=== PATIENT | male | born 1980 | race Caucasian/White ===

== ENCOUNTER 2016-08-31 18:18 | Observation (INO) ==
--- NOTE | 2016-08-31 19:24 | Emergency Department Note ---
Disposition Clinical Impression: Stable angina Disposition: Admitted As Inpatient Condition: Good Time of Disposition: 20:43 Chest Pain HPI - General Chief Complaint: ED Chest Pain Stated Complaint: chest pain Time Seen by Provider: 08/31/16 19:17 Source: patient Mode of arrival: ambulatory Limitations: no limitations Vital Signs Reviewed: Yes Nursing Notes Reviewed: Yes - History of Present Illness HPI Narrative: Patient presents to the ED the chief complaint of chest pain. Patient has a history of coronary artery disease requiring stents with the most recent one year ago. He is on aspirin and Plavix and followed by Dr. Hinojosa. He states that the last 3 days he has been having intermittent left-sided chest pain. However, today it has increased in intensity and has become more constant. Describes it as a very sharp stabbing pressure in his left chest that radiates into his neck, shoulder, and throat. Nothing seems to make it better or worse. It is nonexertional. However, it is his previous anginal equivalent. Associated with intermittent diaphoresis and nausea. Denies any recent illnesses. Denies fever, chills, abdominal pain, vomiting, diarrhea, pain or swelling in his legs. No history DVT, PE, or malignancy. He does report that he has been taking his aspirin and Plavix daily as instructed, but has not followed up with Dr. Hinojosa and almost a year. Has a history of hypertension and continues to smoke, but has lost almost 50 pounds and has significantly cut back on his smoking. He reports that he took a nitroglycerin last night which resolved his pain, but it is back now and has not responded to nitroglycerin. Severity scale (1-10): 8 - Related Data Home Medications Medication Instructions Recorded Confirmed Amlodipine [Norvasc] 5 mg PO DAILY 09/04/15 08/31/16 Atorvastatin [Lipitor] 40 mg PO HS 08/31/16 08/31/16 Diclofenac Sodium 1 appl TP TID PRN 08/31/16 08/31/16 Previous Rx's Medication Instructions Recorded Aspirin 81 mg PO DAILY #30 tab.chew 09/06/15 Clopidogrel [Plavix] 75 mg PO DAILY #30 tablet 09/06/15 Lisinopril [Zestril] 5 mg PO DAILY #30 tablet 09/06/15 Metoprolol [Lopressor] 25 mg PO BID #30 tablet 04/17/16 Nitroglycerin 0.4 mg SL Q5MIN PRN #60 tab.subl 09/06/15 Allergies Allergy/AdvReac Type Severity Reaction Status Date / Time phenobarbital AdvReac Difficulty Verified 06/07/16 01:13 Breathing All systems ED: reviewed and negative except as stated. Constitutional: Reports: other (Intermittent diaphoresis) Cardiovascular: Reports: chest pain. Denies: dyspnea on exertion, orthopnea, syncope Respiratory: Reports: dyspnea Gastrointestinal: Reports: nausea Neurological: Reports: headache (After nitroglycerin) Chest Pain PMH - Past Medical History Medical history: Reports: hyperlipidemia, hypertension, kidney stones, myocardial infarction, other Surgical history: Reports: no surgical history Psychiatric history: Reports: anxiety - Social History Smoking Status: Current every day smoker Alcohol use: Reports: rarely Drug use: Reports: none, other Physical Exam - General Limitations: no limitations General appearance: alert, in no apparent distress, obese - Head Head exam: atraumatic, normocephalic, normal inspection - Eye Eye exam: Present: normal appearance - ENT ENT exam: normal exam, normal oropharynx, mucous membranes moist - Chest Chest inspection: Present: normal inspection, symmetric chest wall rise, tenderness (Vision, does have some tenderness to his bilateral chest wall. However, this is not reproducible of the patient's symptoms and is different from what he is experiencing. He does report that he does work as a operations and maintenance supervisor at the [employer] and is frequently lifting very heavy objects. However the pain he is having is his anginal equiv) - Respiratory Respiratory exam: Present: normal lung sounds bilaterally - Cardiovascular Cardiovascular exam: Present: regular rate, normal rhythm, normal heart sounds - Abdominal Exam Abdominal exam: Present: soft, Non-Tender. Absent: tenderness, distention, guarding, rebound, rigidity - Extremities Exam Extremities exam: Present: normal inspection, full ROM. Absent: tenderness, pedal edema - Neurological Exam Neurological exam: Present: alert, oriented X3 - Psychiatric Psychiatric exam: Present: normal affect, normal mood - Skin Skin exam: Present: warm, dry, intact, normal color. Absent: diaphoresis Course Course Narrative: 28-year-old male presenting with left-sided chest pain the last 3 days, worse today. It is his anginal equivalent to a "small heart attack" one year ago requiring a stent. Initially responsive to nitroglycerin. However, as been constant today. Chest pain workup initiated. Likely admission. - Reevaluation(s) Reevaluation #1: Initial troponin negative, d-dimer negative. Patient's pain is significantly improved. However, due to this being his anginal equivalent, I do think this patient will need to be admitted for further workup and monitoring. Heart score as documented. Paged hospitalist for admission. Vital Signs Temperature 97.9 F 08/31/16 18:37 Pulse Rate 88 08/31/16 18:37 Respiratory Rate 17 08/31/16 18:37 Blood Pressure 134/81 08/31/16 18:37 O2 Sat by Pulse Oximetry 97 08/31/16 18:37 Temperature 97.9 F 08/31/16 18:37 Pulse Rate 69 08/31/16 20:54 Respiratory Rate 16 08/31/16 20:54 Blood Pressure 129/79 08/31/16 20:54 O2 Sat by Pulse Oximetry 99 08/31/16 20:54 Oxygen Delivery Oxygen Delivery Nasal Cannula Chest Pain - Medical Records Medical records reviewed: Yes I reviewed the patient's medical records. - Lab Data Lab results reviewed: Yes I reviewed the patient's lab results. Result diagrams: 08/31/16 19:39 08/31/16 19:39 Lab Results 08/31/16 08/31/16 08/31/16 Range/Units 19:39 19:39 19:39 WBC 8.8 (4.3-11.1) K/mcL RBC 4.90 (4.19-5.50) M/mcL Hgb 14.8 (12.9-16.9) g/dL Hct 44.1 (37.5-50.1) % MCV 90.0 (83.0-100.0) fL MCH 30.2 (28.0-33.3) pg MCHC 33.6 (31.6-35.5) g/dL RDW 12.9 (11.5-14.5) % Plt Count 247 (140-400) K/mcL MPV 9.6 (9.4-12.4) fL Immature Gran % 0.3 (0-4) % Seg Neutrophils % 55.4 % Lymphocytes % 36.2 % Monocytes % 6.1 % Eosinophils % 1.7 % Basophils % 0.3 % Neutrophils # 4.9 (1.6-8.9) K/mcL Lymphocytes # 3.2 (0.6-4.6) K/mcL Monocytes # 0.5 (0.0-1.3) K/mcL Eosinophils # 0.2 (0.0-0.6) K/mcL Basophils # 0.0 (0.0-0.2) K/mcL PT 11.3 (9.4-12.1) Seconds INR 1.0 APTT 30.1 (26.0-36.0) Seconds D-Dimer < 215 (0-500) ng/mLFEU Sodium 140 (136-145) mEq/L Potassium 3.3 L (3.5-4.5) mEq/L Chloride 106 (98-109) mEq/L Carbon Dioxide 28 (19-29) mEq/L BUN 10 (8-26) mg/dL Creatinine 0.99 (0.72-1.25) mg/dL Est GFR ( Amer) > 60 (> 60) Est GFR (Non-Af Amer) > 60 (> 60) BUN/Creatinine Ratio 10 (6-26) Glucose 153 H (70-99) mg/dL Calculated Osmolality 292 (280-300) Calcium 9.0 (8.6-10.8) mg/dL Troponin I (0-0.03) ng/mL Lipase 22 (8-78) Units/L 08/31/16 Range/Units 19:39 WBC (4.3-11.1) K/mcL RBC (4.19-5.50) M/mcL Hgb (12.9-16.9) g/dL Hct (37.5-50.1) % MCV (83.0-100.0) fL MCH (28.0-33.3) pg MCHC (31.6-35.5) g/dL RDW (11.5-14.5) % Plt Count (140-400) K/mcL MPV (9.4-12.4) fL Immature Gran % (0-4) % Seg Neutrophils % % Lymphocytes % % Monocytes % % Eosinophils % % Basophils % % Neutrophils # (1.6-8.9) K/mcL Lymphocytes # (0.6-4.6) K/mcL Monocytes # (0.0-1.3) K/mcL Eosinophils # (0.0-0.6) K/mcL Basophils # (0.0-0.2) K/mcL PT (9.4-12.1) Seconds INR APTT (26.0-36.0) Seconds D-Dimer (0-500) ng/mLFEU Sodium (136-145) mEq/L Potassium (3.5-4.5) mEq/L Chloride (98-109) mEq/L Carbon Dioxide (19-29) mEq/L BUN (8-26) mg/dL Creatinine (0.72-1.25) mg/dL Est GFR ( Amer) (> 60) Est GFR (Non-Af Amer) (> 60) BUN/Creatinine Ratio (6-26) Glucose (70-99) mg/dL Calculated Osmolality (280-300) Calcium (8.6-10.8) mg/dL Troponin I 0.00 (0-0.03) ng/mL Lipase (8-78) Units/L - Radiology Data Radiology results reviewed: Yes I reviewed the patient's radiology results. - EKG Data EKG attestation: Yes I reviewed and interpreted this EKG. EKG results narrative: Sinus rhythm, rate 84, when necessary 162, QRS 91, QTc 387, normal axis, nonspecific T-wave changes Heart Score - Score History: Highly Suspicious (previous anginal equiv) EKG: Non Specific repolarisation Disturbance Age: Less than 45 Risk Factors: Equal/Greater than 3 risk factor or history of atherosclerotic disease Troponin: Less than normal limit HEART Score Total: 5 S.B.A.R. - S.B.A.R. Situation: Demographics, MOA Background: Presenting Complaint, Relevant PMH, Meds, & Allergies Assessment: Vital Signs, Course and respsone to treatment, Exam Concerns, Patient/Family Expectation, Pertinant Lab Results, Outstanding Labs Recommendation: Recommendation based on pending studies, treatments, or consults S.B.A.R. Report Given to: Dr. Pérez [email or web address] Repor Time: 20:43 (Requested Tele) Attestation Statement - Attestation Attestation: I, Gonsalo Snow MD, personally performed a history and physical exam of the patient and discussed their management with the resident. I reviewed the resident's note and agree with the documented findings, medical decision making , and plan of care. 36-year-old male with history of coronary artery disease and a coronary artery stent placed one year ago presents to the emergency department with a complaint of some left-sided chest pain off and on for the past 3 days. Pain is become worse today. The pain radiates towards the left base of the neck into the left arm. Some mild shortness of breath associated with the pain. Some mild diaphoresis. Some nausea but no vomiting. He did take some nitroglycerin at home with partial relief. Patient states this pain feels similar to when he had a stent placed last year. On examination patient is a well-developed obese male in no acute distress. He is alert and oriented 3. There is no cyanosis or diaphoresis. Chest is nontender to palpation. Breath sounds are clear and equal bilaterally. Heart regular rate and rhythm. Abdomen soft and nontender with normal bowel sounds. No acute changes on EKG. Chest x-ray negative. Labs reviewed and unremarkable. Troponin negative. The hospitalist, Dr. Pérez, was consulted and accepted admission of the patient.
[2016-08-31] MEDS ORDERED: 0.9 % Sodium Chloride 500 ML IVC ONE (19:36)
[2016-08-31] MEDS ORDERED: Aspirin 81 MG TAB.CHEW PO ONE (19:36)
[2016-08-31] MEDS ORDERED: Nitroglycerin 0.4 MG TAB.SUBL SL ONE (19:36)
[2016-08-31 19:48] LABS: Basophils % 0.3 %; Eosinophils # 0.2 K/mcL (0.0-0.6); Eosinophils % 1.7 %; Hematocrit 44.1 % (37.5-50.1); Hemoglobin 14.8 g/dL (12.9-16.9); Immature Granulocytes % 0.3 % (0-4); Lymphocytes # 3.2 K/mcL (0.6-4.6); Lymphocytes % 36.2 %; Mean Corpuscular HGB Conc 33.6 g/dL (31.6-35.5); Mean Corpuscular Hemoglobin 30.2 pg (28.0-33.3); Mean Platelet Volume 9.6 fL (9.4-12.4); Monocytes # 0.5 K/mcL (0.0-1.3); Monocytes % 6.1 %; Neutrophils # 4.9 K/mcL (1.6-8.9); Platelet Count 247 K/mcL (140-400); Red Cell Distribution Width 12.9 % (11.5-14.5); Segmented Neutrophils % 55.4 %
[2016-08-31 19:53] LABS: Prothrombin Time 11.3 Seconds (9.4-12.1)
[2016-08-31 19:56] LABS: Activated Partial Thrombo Time 30.1 Seconds (26.0-36.0)
[2016-08-31 20:05] LABS: BUN/Creatinine Ratio 10 (6-26); Blood Urea Nitrogen 10 mg/dL (8-26); Carbon Dioxide 28 mEq/L (19-29); Chloride 106 mEq/L (98-109); Glucose 153 mg/dL (70-99); Lipase 22 Units/L (8-78); Osmolality,Calculated 292 (280-300); Potassium 3.3 mEq/L (3.5-4.5); Sodium 140 mEq/L (136-145); eGFR For African Americans > 60 (> 60); eGFR For Non-African Americans > 60 (> 60)
[2016-08-31 20:21] LABS: D-Dimer < 215 ng/mLFEU (0-500)
[2016-08-31] MEDS ORDERED: Nitroglycerin 0.4 MG TAB.SUBL SL PRN (23:40)
[2016-08-31] MEDS ORDERED: Naloxone 0.4 MG/ML INJ IVP PRN (23:42)
[2016-08-31] MEDS ORDERED: Acetaminophen 325 MG TABLET PO PRN (23:42)
[2016-08-31] MEDS ORDERED: *HR* Metoprolol 5 MG/5 ML VIAL IVP PRN (23:42)
[2016-08-31] MEDS ORDERED: *HR* Promethazine 25 MG/ML VIAL IVP PRN (23:42)
[2016-08-31] MEDS ORDERED: Pantoprazole 40 MG VIAL IVP STA (23:42)
[2016-08-31] MEDS ORDERED: Nicotine 21 MG PATCH.TD24 TD PRN (23:42)
[2016-08-31] MEDS ORDERED: *HR* Enoxaparin 120 MG/0.8 ML SYRINGE SQ STA (23:42)
[2016-09-01] MEDS: *HR* Morphine 2 MG/ML SYRINGE IVP PRN ×6 (00:45→23:15)
[2016-09-01] MEDS: 0.9 % Sodium Chloride 1,000 ML IVC SCH ×2 (01:35→21:36)
[2016-09-01 01:36] LABS: Hematocrit 41.6 % (37.5-50.1); Hemoglobin 14.1 g/dL (12.9-16.9); Mean Corpuscular HGB Conc 33.9 g/dL (31.6-35.5); Mean Corpuscular Hemoglobin 30.9 pg (28.0-33.3); Mean Platelet Volume 10.1 fL (9.4-12.4); Platelet Count 232 K/mcL (140-400); Red Blood Count 4.57 M/mcL (4.19-5.50); Red Cell Distribution Width 13.2 % (11.5-14.5)
[2016-09-01] MEDS: Nitroglycerin 1 INCH/GM PACKET TP SCH ×2 (01:36→05:45)
[2016-09-01 01:45] LABS: Prothrombin Time 10.8 Seconds (9.4-12.1)
[2016-09-01 01:47] LABS: Activated Partial Thrombo Time 29.7 Seconds (26.0-36.0)
[2016-09-01 02:01] LABS: Hemoglobin A1C 5.8 %
[2016-09-01 02:04] LABS: Magnesium 2.2 mg/dL (1.6-2.6); Phosphorous 4.1 mg/dL (2.3-4.7)
[2016-09-01 02:06] LABS: Bilirubin,Urine Negative (Negative); Blood,Urine Negative (Negative); Clarity,Urine Clear (Clear); Color,Urine Yellow (Yellow); Glucose,Urine (UA) Normal (Normal); Ketones,Urine Negative (Negative); Leukocyte Esterase,Urine Negative (Negative); Nitrite,Urine Negative (Negative); PH,Urine 5.5 pH Units (5.0-8.0); Protein,Urine Negative (Neg-Trace); Specific Gravity,Urine 1.022 (1.010-1.025); Urobilinogen,Urine Normal (Normal)
[2016-09-01 03:17] LABS: Alanine Aminotransferase 10 Units/L (0-55); Albumin 3.4 g/dL (3.5-5.0); Albumin/Globulin Ratio 1.1 (1.1-2.2); Alkaline Phosphatase 85 Units/L (38-126); Aspartate Amino Transferase 14 Units/L (5-34); BUN/Creatinine Ratio 10 (6-26); Bilirubin,Total 0.2 mg/dL (0.2-1.2); Blood Urea Nitrogen 10 mg/dL (8-26); Calcium 8.9 mg/dL (8.6-10.8); Carbon Dioxide 21 mEq/L (19-29); Chloride 105 mEq/L (98-109); Chol/HDL Ratio 6.6 (0-4.9); Cholesterol 239 mg/dL (< 200); Glucose 81 mg/dL (70-99); HDL Cholesterol 36 mg/dL (40-59); Osmolality,Calculated 286 (280-300); Potassium 3.9 mEq/L (3.5-4.5); Sodium 139 mEq/L (136-145); Total Protein 6.4 g/dL (6.0-8.3); Triglycerides 476 mg/dL (< 150); eGFR For African Americans > 60 (> 60); eGFR For Non-African Americans > 60 (> 60)
[2016-09-01 03:37] LABS: Thyroid Stimulating Hormone 1.475 mcIU/mL (0.350-4.840)
--- NOTE | 2016-09-01 06:09 | Internal Med History&Physical ---
Date of Encounter: 08/31/16 Time of Encounter: 23:00 Assessment and Plan (1) Acute chest wall pain Current visit: Yes Status: Acute . (2) Chest pain, rule out acute myocardial infarction Current visit: Yes Status: Acute . (3) Chest pain with low risk of acute coronary syndrome Current visit: Yes Status: Acute . (4) Anxiety as acute reaction to gross stress Current visit: Yes Status: Acute . (5) Costochondritis, acute Current visit: Yes Status: Acute . (6) Obesity (BMI 30-39.9) Current visit: Yes Status: Chronic . (7) History of PTCA Current visit: Yes Status: Chronic . (8) Nicotine dependence with nicotine-induced disorder Current visit: Yes Status: Chronic . Qualifiers: Nicotine product type: cigarettes Qualified Code(s): F17.219 - Nicotine dependence, cigarettes, with unspecified nicotine-induced disorders (9) Hyperlipidemia Current visit: Yes Status: Chronic . Qualifiers: Hyperlipidemia type: unspecified Qualified Code(s): E78.5 - Hyperlipidemia , unspecified (10) CAD (coronary artery disease) Current visit: Yes Status: Chronic . Qualifiers: Coronary Disease-Associated Artery/Lesion type: rincon artery [place] vs. transplanted heart: rincon heart Associated angina: angina presence unspecified Qualified Code(s): I25.10 - Atherosclerotic heart disease of rincon coronary artery without angina pectoris (11) HTN (hypertension) Current visit: Yes Status: Chronic . Qualifiers: Hypertension type: essential hypertension Qualified Code(s): I10 - Essential (primary) hypertension Internal Medicine - H&P: HPI Chief complaint: Chest pain Admitted From: Emergency Dept Plans for Post Hospital Care: Home History of present illness: Mr. Robert is a 36 year old male was admitted to [facility] via the emergency department when he presented with complaints intermittent left-sided chest pain over the preceding 7-10 days prior to presentation. But worse the last 3 days. Patient's chronic history is noteworthy for CAD/PTCA stents with most recent intervention in 2016. Patient reports vague fullness to aspirin Plavix therapy as prescribed. He reported that his chest pain that became acutely worsened and constant on the day of his presentation to the ED. Sharp stabbing pressure -like discomfort with radiation into his left neck and throat. Nothing seemed to improve his symptoms would present or worsen them when present illness episodes occurring while at rest. However he did note on the night prior to admission sublingual nitroglycerin seemed to diminish intensity of pain when present. He denied any associated feverishness chills. Denied any chest wall trauma but does acknowledge palpable tenderness and inducible chest pain. Symptoms have been worse seem to be associated with intermittent diaphoresis and some nausea and shortness of air he denied any prior history of DVT PE or malignancy. He has been lost to formal follow-up with his director public policy for almost a year. He continues to smoke. He acknowledges increased personal stressors and worries. Vital signs at presentation were stable. Screening laboratory including CBC, coagulation profiles, basic metabolic panel, lipase were normal. Troponin was 0.00. A potassium of 3.3 was noted. A glucose of 153 was noted EKG demonstrated no acute ischemic changes. Normal sinus rhythm. Preliminary impressions suggest acute chest pain syndrome with predominantly atypical features in a patient with previously defined CAD/NSTEMI/PTCA with stent placements and professed compliance with antiplatelet therapies. Compliance history cannot be validated. Initial screening studies did not confirm ACS/UA/DVT/PE. Examination does reveal very specific trigger points to the left chest which she incites his chest pain and duplicates and exactly. Patient himself has unconsciously held several pillows to his left chest and has found this to relieve/less than his pain when nothing else would. His persona is anxious and appears depressed. Workup and treatments will proceed comprehensively. Consultative opinions will be sought as clinical circumstances justify. Cumulative laboratory and radiographic data base was considered and discussed. Given the patient's presenting concerns, past medical history, clinical findings and symptoms, he is admitted at this time to undergo further evaluation and disposition. Orders written. Past Med Surg Social Fam HX - Past Medical History Source: old records reviewed Medical history: arthritis, coronary artery disease, hyperlipidemia, hypertension, kidney stones, liver disease (Fatty Liver, NOS.), myocardial infarction, renal disease, other Psychiatric history: anxiety, depression, other - Past Surgical History Surgical History: angioplasty/stent, other - Social History Smoking Status: Current every day smoker Packs per day: 1+ppd Smokeless Tobacco Status: No Alcohol use: rarely Drug use: none Occupational status: employed Current living situation: Home - Independent, Home Activity Level: Independent ambulation, Mostly sedentary Recent Out of Country Travel Within the Last 8 Weeks: No Exposure or Possible Exposure to Illness During Travel: No - Family History Father Adopted: [place]: Gary Robert Family Member Ethnicity: Non- Living Status: Age at : 46 Cause of : Failed gastric bypass Hx Family Cardiac Disorders: No Hx Family Respiratory Disorders: No Hx Family Cancer: No Hx Family GI Disorders: No Hx Family Genitourinary Disorders: No Hx Family Endocrine Disorder: No Hx Family Musculoskeletal Disorders: No Hx Family Neuromuscular Disorders: No Hx Family Neurologic Disorders: No Hx Family HEENT Disorders: No Hx Family Autoimmune Disorders: No Hx Family Reproductive Disorders: No Hx Family Psychosocial Disorders: No Hx Family Medical Disorders: No Mother Adopted: [place]: Amy Robert Age: 55 Family Member Ethnicity: Non- Living Status: Still Living Hx Family Cardiac Disorders: Yes (Irregular heartbeat) Hx Family Respiratory Disorders: No Hx Family Cancer: No Hx Family GI Disorders: No Hx Family Genitourinary Disorders: No Hx Family Endocrine Disorder: No Hx Family Musculoskeletal Disorders: Yes (Knee replecement) Hx Family Neuromuscular Disorders: No Hx Family Neurologic Disorders: No Hx Family Autoimmune Disorders: No Hx Family Reproductive Disorders: No Hx Family Psychosocial Disorders: No Hx Family Medical Disorders: No Grandfather Age at : 43 Hx Family Cardiac Disorders: Yes ([place] at age 41.) Internal Medicine - H&P: Meds Amlodipine [Norvasc] 5 mg PO DAILY 09/04/15 [History] Aspirin 81 mg PO DAILY #30 tab.chew 09/06/15 [Rx] Clopidogrel [Plavix] 75 mg PO DAILY #30 tablet 09/06/15 [Rx] Lisinopril [Zestril] 5 mg PO DAILY #30 tablet 09/06/15 [Rx] Metoprolol [Lopressor] 25 mg PO BID #30 tablet 09/06/15 [Rx] Nitroglycerin 0.4 mg SL Q5MIN PRN #60 tab.subl 09/06/15 [Rx] Atorvastatin [Lipitor] 40 mg PO HS 08/31/16 [History] Diclofenac Sodium 1 appl TP TID PRN 08/31/16 [History] Allergies phenobarbital Adverse Reaction (Verified 06/07/16 01:13) Difficulty Breathing RASH AND SWELLING All Systems PM: A 10-system review of systems was performed and is negative for pertinent findings except as documented above in the HPI. Patient Problems (Last Updated 08/31/16 @ 20:43 by Talon Tineo DO) Pericarditis (Acute Medical) I31.9 Chest pain (Acute Medical) R07.9 Hypertension (Chronic Medical) I10 Hyperlipidemia (Chronic Medical) E78.5 DVT prophylaxis (Acute Medical) [id number] Elevated troponin (Acute Medical) R79.89 CAD (coronary artery disease) (Acute Medical) I25.10 NSTEMI (non-ST elevated myocardial infarction) (Acute Medical) I21.4 Tobacco use (Acute Social Hx) Z72.0 Sepsis (Acute Medical) A41.9 Stable angina (Acute Medical) I20.8 Abrasion (Inactive Medical) Atypical chest pain (Inactive Medical) R07.89 Chest wall pain (Inactive Medical) R07.89 Fracture of fifth finger, proximal phalanx, left, closed (Inactive Medical) Ureterolithiasis (Inactive Medical) N20.1 - Constitutional Constitutional: as per HPI, malaise, no chills, no fever(s), no night sweats - EENT Eyes: as per HPI, no change in vision, no discharge, no pain, no photophobia Ears: as per HPI, no ear discharge, no ear pain, no tinnitus Nose, mouth and throat: as per HPI, no dysphagia, no nasal discharge, no neck pain, no sore throat - Cardiovascular Cardiovascular ROS IM: as per HPI, chest pain, diaphoresis, dyspnea, lightheadedness, other, no palpitations, no syncope - Respiratory Respiratory: as per HPI, other, no cough, no dyspnea, no wheezing, no excessive phlegm production - Gastrointestinal Gastrointestinal: as per HPI, no abdominal pain, no diarrhea, no hematemesis, no hematochezia, no melena, no nausea, no vomiting - Genitourinary Genitourinary ROS male: as per HPI - Musculoskeletal Musculoskeletal ROS IM: as per HPI, myalgias, no numbness, no tingling - Integumentary Integumentary IM: as per HPI, no rash, no unusual bruising - Neurological Neurological ROS: as per HPI, no confusion, no convulsions, no focal weakness, no numbness, no tingling, no tremor(s) - Psychiatric Psychiatric: as per HPI - Endocrine Endocrine IM: as per HPI - Hematologic/Lymphatic Hematologic/Lymphatic: as per HPI, no easy bruising - Allergic/Immunologic Allergic/Immunologic: as per HPI - Constitutional Vitals: Temp Pulse Resp BP Pulse Ox 98.2 F 56 15 139/75 95 09/01/16 04:05 09/01/16 04:05 09/01/16 04:05 09/01/16 04:05 09/01/16 04:05 Vital Signs Temp Pulse Resp BP Pulse Ox 09/01/16 04:05 98.2 F 56 15 139/75 95 08/31/16 23:09 97.8 F 66 16 118/74 96 08/31/16 21:10 98 F 16 129/79 08/31/16 20:54 69 16 129/79 99 08/31/16 20:05 97 08/31/16 19:55 97 15 137/97 95 08/31/16 19:26 78 16 147/97 98 08/31/16 18:37 97.9 F 88 17 134/81 97 Intake and Output 08/31/16 08/31/16 09/01/16 15:59 23:59 07:59 Intake Total 500 / 500 Balance 500 / 500 Intake: IV Fluids 500 / 500 0.9 % Sodium Chloride 500 500 / 500 ML @ 1875 mls/hr IVC . Q16M ONE Rx#:[id number] Other: Weight 113.852 kg 114.14 kg Patient Weight 09/01/16 23:59 Weight 114.14 kg General appearance: Present: cooperative, mild distress, A&O X 3, obese, answers questions appropriately - Head Head exam: Present: atraumatic, normocephalic - Eye Eye exam: Present: EOMI, PERRL, conjuntiva pink, sclera anicteric Pupils: Present: normal accommodation, PERRL - ENT ENT exam: Present: mucous membranes moist, normal oropharynx - Neck Neck exam general surgery: Present: full ROM, supple, trachea midline. Absent: lymphadenopathy - Respiratory Respiratory exam: Present: chest wall tenderness, decreased breath sounds. Absent: accessory muscle use, CTAB, rales, rhonchi, stridor, wheezes - Cardiovascular Cardiovascular exam: Present: distant heart sounds, RRR, +S1, +S2. Absent: diastolic murmur, gallop, rubs, systolic murmur - GI/Abdominal GI/Abdominal exam: Present: normal bowel sounds, soft, no peritoneal signs. Absent: distended, tenderness - Extremities Exam Extremities exam: Present: full ROM, warm, radial pulses palpable and symetrical. Absent: calf tenderness, cyanotic, pedal edema, tenderness - Neurological Exam Neurological exam: Present: alert, CN II-XII intact, oriented X3, no focal deficits, strengths equal and symetr throughout. Absent: pronater drift, facial droop, speech deficit - Psychiatric Psychiatric exam: Present: anxious, depressed - Skin Skin exam: Present: dry, intact, warm. Absent: petechiae, rash, urticaria, vesicles Internal Med - H&P Results - Labs CBC & Chem 7: 09/01/16 01:13 09/01/16 01:13 Labs: Short CBC 09/01/16 Range/Units 01:13 WBC 8.9 (4.3-11.1) K/mcL Hgb 14.1 (12.9-16.9) g/dL Hct 41.6 (37.5-50.1) % Plt Count 232 (140-400) K/mcL BMP 09/01/16 01:13 Sodium 139 Potassium 3.9 Chloride 105 Carbon Dioxide 21 BUN 10 Creatinine 1.02 Glucose 81 Calcium 8.9 Cardiac Enzymes 09/01/16 Range/Units 01:13 Troponin I 0.00 (0-0.03) ng/mL Liver Function 09/01/16 Range/Units 01:13 Total Bilirubin 0.2 (0.2-1.2) mg/dL AST 14 (5-34) Units/L ALT 10 (0-55) Units/L Alkaline Phosphatase 85 (38-126) Units/L Albumin 3.4 L (3.5-5.0) g/dL Urine 09/01/16 Range/Units 00:20 Urine Color Yellow (Yellow) Urine Clarity Clear (Clear) Urine pH 5.5 (5.0-8.0) pH Units Ur Specific [place] 1.022 (1.010-1.025) Urine Protein Negative (Neg-Trace) mg/dL Urine Glucose (UA) Normal (Normal) mg/dL Abnormal lab results Hemoglobin A1c 5.8 % (-5.6) H 09/01/16 01:13 Albumin 3.4 g/dL (3.5-5.0) L 09/01/16 01:13 Triglycerides 476 mg/dL (< 150) H 09/01/16 01:13 Cholesterol 239 mg/dL (< 200) H 09/01/16 01:13 HDL Cholesterol 36 mg/dL (40-59) L 09/01/16 01:13 Cholesterol/HDL Ratio 6.6 (0-4.9) H 09/01/16 01:13 Laboratory Results WBC 8.9 K/mcL (4.3-11.1) 09/01/16 01:13 RBC 4.57 M/mcL (4.19-5.50) 09/01/16 01:13 Hgb 14.1 g/dL (12.9-16.9) 09/01/16 01:13 Hct 41.6 % (37.5-50.1) 09/01/16 01:13 MCV 91.0 fL (83.0-100.0) 09/01/16 01:13 MCH 30.9 pg (28.0-33.3) 09/01/16 01:13 MCHC 33.9 g/dL (31.6-35.5) 09/01/16 01:13 RDW 13.2 % (11.5-14.5) 09/01/16 01:13 Plt Count 232 K/mcL (140-400) 09/01/16 01:13 MPV 10.1 fL (9.4-12.4) 09/01/16 01:13 Immature Gran % 0.3 % (0-4) 08/31/16 19:39 Seg Neutrophils % 55.4 % 08/31/16 19:39 Lymphocytes % 36.2 % 08/31/16 19:39 Monocytes % 6.1 % 08/31/16 19:39 Eosinophils % 1.7 % 08/31/16 19:39 Basophils % 0.3 % 08/31/16 19:39 Neutrophils # 4.9 K/mcL (1.6-8.9) 08/31/16 19:39 Lymphocytes # 3.2 K/mcL (0.6-4.6) 08/31/16 19:39 Monocytes # 0.5 K/mcL (0.0-1.3) 08/31/16 19:39 Eosinophils # 0.2 K/mcL (0.0-0.6) 08/31/16 19:39 Basophils # 0.0 K/mcL (0.0-0.2) 08/31/16 19:39 PT 10.8 Seconds (9.4-12.1) 09/01/16 01:13 INR 1.0 09/01/16 01:13 APTT 29.7 Seconds (26.0-36.0) 09/01/16 01:13 D-Dimer < 215 ng/mLFEU (0-500) 08/31/16 19:39 Sodium 139 mEq/L (136-145) 09/01/16 01:13 Potassium 3.9 mEq/L (3.5-4.5) 09/01/16 01:13 Chloride 105 mEq/L (98-109) 09/01/16 01:13 Carbon Dioxide 21 mEq/L (19-29) 09/01/16 01:13 BUN 10 mg/dL (8-26) 09/01/16 01:13 Creatinine 1.02 mg/dL (0.72-1.25) 09/01/16 01:13 Est GFR ( Amer) > 60 (> 60) 09/01/16 01:13 Est GFR (Non-Af Amer) > 60 (> 60) 09/01/16 01:13 BUN/Creatinine Ratio 10 (6-26) 09/01/16 01:13 Glucose 81 mg/dL (70-99) 09/01/16 01:13 Est Mean Plasma Glucose 120 mg/dl 09/01/16 01:13 Hemoglobin A1c 5.8 % (-5.6) H 09/01/16 01:13 Calculated Osmolality 286 (280-300) 09/01/16 01:13 Calcium 8.9 mg/dL (8.6-10.8) 09/01/16 01:13 Phosphorus 4.1 mg/dL (2.3-4.7) 09/01/16 01:13 Magnesium 2.2 mg/dL (1.6-2.6) 09/01/16 01:13 Total Bilirubin 0.2 mg/dL (0.2-1.2) 09/01/16 01:13 AST 14 Units/L (5-34) 09/01/16 01:13 ALT 10 Units/L (0-55) 09/01/16 01:13 Alkaline Phosphatase 85 Units/L (38-126) 09/01/16 01:13 Troponin I 0.00 ng/mL (0-0.03) 09/01/16 01:13 Serum Total Protein 6.4 g/dL (6.0-8.3) 09/01/16 01:13 Albumin 3.4 g/dL (3.5-5.0) L 09/01/16 01:13 Globulin 3.0 g/dL (2.4-3.5) 09/01/16 01:13 Albumin/Globulin Ratio 1.1 (1.1-2.2) 09/01/16 01:13 Triglycerides 476 mg/dL (< 150) H 09/01/16 01:13 Cholesterol 239 mg/dL (< 200) H 09/01/16 01:13 LDL Cholesterol, Calc TNP 09/01/16 01:13 VLDL Cholesterol, Calc TNP 09/01/16 01:13 HDL Cholesterol 36 mg/dL (40-59) L 09/01/16 01:13 Cholesterol/HDL Ratio 6.6 (0-4.9) H 09/01/16 01:13 Lipase 22 Units/L (8-78) 08/31/16 19:39 TSH 1.475 mcIU/mL (0.350-4.840) 09/01/16 01:13 Urine Color Yellow (Yellow) 09/01/16 00:20 Urine Clarity Clear (Clear) 09/01/16 00:20 Urine pH 5.5 pH Units (5.0-8.0) 09/01/16 00:20 Ur Specific [place] 1.022 (1.010-1.025) 09/01/16 00:20 Urine Protein Negative mg/dL (Neg-Trace) 09/01/16 00:20 Urine Glucose (UA) Normal mg/dL (Normal) 09/01/16 00:20 Urine Ketones Negative mg/dL (Negative) 09/01/16 00:20 Urine Blood Negative (Negative) 09/01/16 00:20 Urine Nitrite Negative (Negative) 09/01/16 00:20 Urine Bilirubin Negative (Negative) 09/01/16 00:20 Urine Urobilinogen Normal mg/dL (Normal) 09/01/16 00:20 Ur Leukocyte Esterase Negative (Negative) 09/01/16 00:20 Blood Type A POSITIVE 09/01/16 01:13 Antibody Screen NEGATIVE 04/13/17 01:13 Impressions Chest X-Ray 08/31/16 19:37 IMPRESSION: No acute process. D/ / Oswaldo Theodore MD / Oswaldo Theodore MD Interpreting Provider: Oswaldo Theodore MD
[2016-09-01] MEDS: Aspirin 81 MG TAB.CHEW PO SCH (09:58)
[2016-09-01] MEDS: amLODIPine 5 MG TABLET PO SCH (09:58)
--- NOTE | 2016-09-01 12:18 | Electrocardiograph Report ---
[place] [address] Test Date: 2016-08-31 Pat Name: Mathew Robert Department: 104 Room: 3B45 Gender: M It Technician: : 1980 Requested By: Yuliya See Order Number: [id number] Reading MD: Conner Reyes MD Measurements Intervals [place] Rate: 84 P: 12 WI: 162 QRS: 6 QRSD: 91 T: 15 QT: 346 QTc: 387 Interpretive Statements SINUS RHYTHM Electronically Signed On 09-01-2016 12:16:58 EDT by Conner Reyes MD
--- NOTE | 2016-09-01 12:23 | Electrocardiograph Report ---
[address] [address] Test Date: 2016-09-01 Pat Name: Mathew oRbert Department: 113 Room: 3B45 Gender: M [employer] Technician: LENORA : 1980 Requested By: Azar Pérez Order Number: [id number] Reading MD: Conner Reyes MD Measurements Intervals [place] Rate: 67 P: 16 VT: 175 QRS: 22 QRSD: 80 T: 23 QT: 374 QTc: 390 Interpretive Statements SINUS RHYTHM Electronically Signed On 09-01-2016 12:21:27 EDT by Conner Reyes MD
--- NOTE | 2016-09-01 19:46 | Internal Med Progress Note ---
Date of Encounter: 09/01/16 Time of Encounter: 10:00 - Assessment and plan (1) Chest pain Current Visit: No Status: Acute Assessment and plan: Patient has constant left-sided chest pain, worsening on chest wall palpation. Consider skeletal muscular chest pain. - Continue present management with NSAID - Three sets of troponin negative - Will have stress test for tomorrow because patient has history of CAD. - Continue closely monitoring Qualifiers: Chest pain type: intercostal pain Qualified Code(s): R07.82 - Intercostal pain (2) Hyperlipidemia Current Visit: Yes Status: Chronic Assessment and plan: Continue home medications Qualifiers: Hyperlipidemia type: unspecified Qualified Code(s): E78.5 - Hyperlipidemia , unspecified (3) DVT prophylaxis Current Visit: No Status: Acute Assessment and plan: Patient is young and ambulating (4) CAD (coronary artery disease) Current Visit: Yes Status: Chronic Assessment and plan: S/P stent. Continue aspirin, Plavix, beta alec, and statin Qualifiers: Coronary Disease-Associated Artery/Lesion type: [place] artery [place] vs. transplanted heart: cheesh-na heart Associated angina: angina presence unspecified Qualified Code(s): I25.10 - Atherosclerotic heart disease of [place] coronary artery without angina pectoris - Time Spent With Patient 25 - 35 minutes - Subjective Interval history: Patient is a 36-year-old male admitted for chest pain. Past medical history is significant for hypertension, hyperlipidemia, CAD S/P stenting. I saw and examined the patient. Patient has left side chest wall sharp pain. Pain is producible by chest wall palpition. 3 sets of troponin negative. Less likely ACS. Plan for stress test for tomorrow. - Constitutional Vitals: Temp Pulse Resp BP Pulse Ox 98.1 F 66 16 104/63 95 09/01/16 18:47 09/01/16 18:47 09/01/16 18:47 09/01/16 18:47 09/01/16 18:47 General appearance: Present: cooperative, mild distress, A&O X 3, obese, answers questions appropriately - Head Head exam: Present: atraumatic, normocephalic - Eye Eye exam: Present: PERRL, conjuntiva pink, sclera anicteric Pupils: Present: PERRL - Neck Neck exam general surgery: Present: supple, trachea midline. Absent: lymphadenopathy - Respiratory Respiratory exam: Present: chest wall tenderness, CTAB. Absent: accessory muscle use, rales, rhonchi, wheezes - Cardiovascular Cardiovascular exam: Present: RRR, +S1, +S2. Absent: diastolic murmur, gallop, rubs, systolic murmur - GI/Abdominal GI/Abdominal exam: Present: normal bowel sounds, soft, no peritoneal signs. Absent: distended, tenderness - Extremities Exam Extremities exam: Present: warm, radial pulses palpable and symetrical. Absent : calf tenderness, cyanotic, pedal edema - Neurological Exam Neurological exam: Present: CN II-XII intact, oriented X3, no focal deficits. Absent: pronater drift, facial droop, speech deficit - Skin Skin exam: Present: dry, intact Internal Medicine: Result - Labs CBC & Chem 7: 09/01/16 01:13 09/01/16 01:13 Labs: Short CBC 09/01/16 Range/Units 01:13 WBC 8.9 (4.3-11.1) K/mcL Hgb 14.1 (12.9-16.9) g/dL Hct 41.6 (37.5-50.1) % Plt Count 232 (140-400) K/mcL BMP 09/01/16 01:13 Sodium 139 Potassium 3.9 Chloride 105 Carbon Dioxide 21 BUN 10 Creatinine 1.02 Glucose 81 Calcium 8.9 Cardiac Enzymes 09/01/16 09/01/16 09/01/16 Range/Units 01:13 06:18 12:51 Troponin I 0.00 0.00 0.00 (0-0.03) ng/mL Liver Function 09/01/16 Range/Units 01:13 Total Bilirubin 0.2 (0.2-1.2) mg/dL AST 14 (5-34) Units/L ALT 10 (0-55) Units/L Alkaline Phosphatase 85 (38-126) Units/L Albumin 3.4 L (3.5-5.0) g/dL Urine 09/01/16 Range/Units 00:20 Urine Color Yellow (Yellow) Urine Clarity Clear (Clear) Urine pH 5.5 (5.0-8.0) pH Units Ur Specific [place] 1.022 (1.010-1.025) Urine Protein Negative (Neg-Trace) mg/dL Urine Glucose (UA) Normal (Normal) mg/dL - ABG Interpretation ABG results: PT/INR, D-dimer PT 10.8 Seconds (9.4-12.1) 09/01/16 01:13 D-Dimer < 215 ng/mLFEU (0-500) 08/31/16 19:39 Consult Discharge Plan - Plan Referrals: Samuel Santiago MD [Primary Care Provider] - 09/07/16 9:45 am
[2016-09-02] MEDS: amLODIPine 5 MG TABLET PO SCH (08:25)
[2016-09-02] MEDS: *HR* Morphine 2 MG/ML SYRINGE IVP PRN ×4 (08:25→23:52)
[2016-09-02] MEDS: Aspirin 81 MG TAB.CHEW PO SCH (08:25)
[2016-09-02] MEDS ORDERED: Regadenoson 0.4 MG/5 ML SYRINGE IVP ONE (08:51)
--- NOTE | 2016-09-02 10:29 | ECHO - Doppler Report ---
Echocardiogram Name: Mathew Robert Date of Study: 09/01/2016 Date: 1980 Ht: 67.0 in Medical Record#: [id number] Age: 36 Wt: 251.0 lb Gender: Male BSA: 2.23 Order #: [id number] Location: [facility] Room #: [facility] Reading Physician: Schuyler Hinojosa DO, JESUS DUBOIS Sound Truck Operator: Yuliya Farias RDCS Ordering Physician: Azar Pérez MD Primary Physician: Samuel Santiago MD Indications: ACS Impressions: LVEF 60%. Normal left ventricular size and systolic function. Normal diastolic function of the left ventricle. Normal right ventricular size and function. No significant valvular dysfunction. No pulmonary hypertension. Left Ventricular Wall Motion: Rest Echo Findings All wall segments showed normal motion. Findings: Study Quality * Technically adequate exam. ECG Findings * Normal sinus rhythm. Left Ventricle * LVEF 60%. * Normal LV chamber size, wall thickness and function. * Normal left ventricular diastolic function. Right Ventricle * Normal right ventricular structure and function. Left Atrium * Mildly dilated left atrium. Right Atrium * Normal right atrial size. Interatrial Septum * * No evidence of PFO by color Doppler. Aortic Valve * Trileaflet aortic valve with normal function. * No aortic regurgitation. * No aortic stenosis. Mitral Valve * Normal mitral valve structure and function. * No mitral stenosis. * No mitral regurgitation. Tricuspid Valve * Normal tricuspid valve structure and function. * Trace tricuspid regurgitation. * No evidence of pulmonary hypertension. Pulmonic Valve * Normal pulmonic valve structure and function. * No pulmonic regurgitation. Aorta * Normally sized aortic root. Pericardium * The pericardium appears normal. IVC * Normal IVC dimensions and inspiratory collapse. Pulmonary Artery * Normal visualized portions of the main pulmonary artery. History Hypertension Hypercholesteremia History of Smoking Years 20 Packs 0.5 Family History of CAD History of CAD/PTCA Myocardial Infarction 09/04/2015 a Previous Echo was performed. Measurements: BP: 112/ 55 2D Normal Values RVIDd: 3.16 cm <2.7 cm IVSd: .66 cm 0.6 - 1.0 cm LVIDd: 5.60 cm 3.7 - 5.6 cm LVPWd: .97 cm 0.6 - 1.1 cm LVIDs: 3.02 cm 1.5 - 3.6 cm AO: 2.50 cm < 4.0 cm LA: 3.70 cm 2.0 - 4.0cm %FS: 47.90 cm >25 % LA volume: 34 Mitral Valve Peak E:1.06 m/sec Peak A:.52 m/sec E/A Ratio:2 Peak E' Lat Valente:9.57 cm/s Peak E' Med Valente:9.14 cm/s E/E' Lat Ratio:11.1 E/E' Med Ratio:11.6 Tricuspid Valve TV Regurg Peak Grad: 16.00mmHg TV Regurg Peak Valente: 1.97m/sec Updated by Schuyler Hinojosa DO, FACCarol, JESUS, CHARLES on 09/02/2016 10:22:53 AM electronically signed on 09/02/2016 10:25:39 AM with status of Final Wall Motion [employer]: 1=Normal, 2=Hypokinesis, 3=Akinesis, 4=Dyskinesis, 5=Aneurysmal, 6=Hyperkinetic, X=Not Visualized (Blank)=Missing
--- NOTE | 2016-09-02 17:52 | Internal Med Progress Note ---
Date of Encounter: 09/02/16 Time of Encounter: 10:00 - Assessment and plan (1) Chest pain Current Visit: No Status: Acute Assessment and plan: Patient has constant left-sided chest pain, worsening on chest wall palpation. Consider skeletal muscular chest pain. - Continue present management with NSAID, increase neproxen dose. - Three sets of troponin negative - Had stress test today, report pending. - Continue closely monitoring Qualifiers: Chest pain type: intercostal pain Qualified Code(s): R07.82 - Intercostal pain (2) Hyperlipidemia Current Visit: Yes Status: Chronic Assessment and plan: Continue home medications simvastatin. Qualifiers: Hyperlipidemia type: unspecified Qualified Code(s): E78.5 - Hyperlipidemia , unspecified (3) DVT prophylaxis Current Visit: No Status: Acute Assessment and plan: Patient is young and ambulating (4) CAD (coronary artery disease) Current Visit: Yes Status: Chronic Assessment and plan: S/P stent. Continue aspirin, Plavix, beta alec, and statin Qualifiers: Coronary Disease-Associated Artery/Lesion type: [place] artery [place] vs. transplanted heart: [place] heart Associated angina: angina presence unspecified Qualified Code(s): I25.10 - Atherosclerotic heart disease of [place] coronary artery without angina pectoris - Time Spent With Patient 25 - 35 minutes - Subjective Interval history: Patient is a 36-year-old male admitted for chest pain. Past medical history is significant for hypertension, hyperlipidemia, CAD S/P stenting. I saw and examined the patient. Patient still has moderate left side chest wall sharp pain. Pt Had stress test today, result pending. Cont NSAID treatment , adjuvant with oxycodone. Vitals stable. Pt has hyperlipidemia, on simvastatin. - Constitutional Vitals: Temp Pulse Resp BP Pulse Ox 98.0 F 60 16 106/68 97 09/02/16 14:52 09/02/16 14:52 09/02/16 14:52 09/02/16 14:52 09/02/16 14:52 General appearance: Present: cooperative, A&O X 3, no acute distress, obese, answers questions appropriately - Head Head exam: Present: atraumatic, normocephalic - Eye Eye exam: Present: PERRL, conjuntiva pink, sclera anicteric Pupils: Present: PERRL - Neck Neck exam general surgery: Present: supple, trachea midline. Absent: lymphadenopathy - Respiratory Respiratory exam: Present: chest wall tenderness, CTAB. Absent: accessory muscle use, rales, rhonchi, wheezes - Cardiovascular Cardiovascular exam: Present: RRR, +S1, +S2. Absent: diastolic murmur, gallop, rubs, systolic murmur - GI/Abdominal GI/Abdominal exam: Present: normal bowel sounds, soft, no peritoneal signs. Absent: distended, tenderness - Extremities Exam Extremities exam: Present: warm, radial pulses palpable and symetrical. Absent : calf tenderness, cyanotic, pedal edema - Neurological Exam Neurological exam: Present: CN II-XII intact, oriented X3, no focal deficits. Absent: pronater drift, facial droop, speech deficit - Skin Skin exam: Present: dry, intact Internal Medicine: Result - Labs CBC & Chem 7: 09/01/16 01:13 09/01/16 01:13 - ABG Interpretation ABG results: PT/INR, D-dimer PT 10.8 Seconds (9.4-12.1) 09/01/16 01:13 D-Dimer < 215 ng/mLFEU (0-500) 08/31/16 19:39 Consult Discharge Plan - Plan Referrals: Samuel Santiago MD [Primary Care Provider] - 09/07/16 9:45 am
[2016-09-02] MEDS: *HR* Heparin 5,000 UNIT/ML VIAL SQ SCH (20:01)
[2016-09-03] MEDS: *HR* Morphine 2 MG/ML SYRINGE IVP PRN (06:23)
[2016-09-03] MEDS: *HR* Heparin 5,000 UNIT/ML VIAL SQ SCH ×2 (06:42→16:20)
[2016-09-03] MEDS: Aspirin 81 MG TAB.CHEW PO SCH (08:39)
[2016-09-03] MEDS: amLODIPine 5 MG TABLET PO SCH (08:40)
[2016-09-03] MEDS: *HR* OxyCODONE Immed Rel 5 MG TABLET PO PRN ×3 (08:50→23:01)
--- NOTE | 2016-09-03 11:45 | Nuclear Medicine Stress Report ---
Regadenoson Nuclear 2 day Name: Mathew Robert Date of Study: 09/02/2016 Date: 1980 Ht: 66.0 in Medical Record#: [id number] Age: 36 Wt: 251.0 lb Gender: Male Order #: [id number] Location: [facility] IP Room: [facility] Supervising Provider: Anastasia Dias CNP Reading Physician: Jeremi Walton MD, [facility] Ordering Physician: Doris Cannon MD Primary Care Physician: Samuel Santiago MD Stress Technologist: Shilo Phipps FLIGHT LINE SERVICE ATTENDANT, [employer] Detailer: Janes Wright Indications: Chest Pain Impression: No significant ECG changes with regadenoson. Gated LVEF = 61%. The left ventricle is borderline dilated. There is a small-medium sized, mild-moderate intensity, reversible perfusion defect involving the basal-apical inferior wall. Findings are consistent with mild-moderate reversible ischemia of the inferior wall. Ordering physician notified of abnormal results via [employer] message. History: Hypertension Hypercholesteremia History of Smoking Prior PCI Stress Test Summary: Stress Test Type: Pharmacologic Regadenoson 0.4mg/5ml given IV Baseline Information: Initial Heart Rate: 60 Blood Pressure: 114/72 Stress Information: Test Terminated Due to (primary): Completed Protocol Maximum Blood Pressure: 130/68 Maximum Heart Rate: 90 Percent Maximum Heart Rate Achieved: 50 Double Product: 11,700 Symptoms: Shortness of breath, Lightheadness Nuclear Summary: SPECT myocardial perfusion imaging using Tc99m Sestamibi given intravenously was performed at rest and following cardiac stress testing. The resting images were obtained following initial dose of 32.9 mCi. Following stress an additional dose of 30 mCi was given at peak exercise or 30 seconds post regadenoson infusion. Findings: Stress Note * Resting ECG demonstrated normal sinus rhythm (note: lead V6 missing). * No baseline arrhythmias were noted. * Patient had no chest pain during stress. * No arrhythmias were noted during stress. * No significant ECG changes with regadenoson. Hemodynamic responses * Normal hemodynamic responses to pharmacologic stress. Study Quality * Study quality is average. Gated EF % * Gated LVEF = 61%. Left Ventricle * The left ventricle is borderline dilated. * Normal Segmental Perfusion in rest. * There is a small-medium sized, mild-moderate intensity, reversible perfusion defect involving the basal-apical inferior wall. * Findings are consistent with mild-moderate reversible ischemia of the inferior wall. TID * No evidence of transient ischemic dilatation. Updated by Jeremi Walton MD, [facility] on 09/03/2016 11:39:42 AM electronically signed on 09/03/2016 11:40:19 AM with status of Final
--- NOTE | 2016-09-03 12:42 | Cardiology Consult Note ---
Date of Encounter: 09/03/16 Time of Encounter: 12:35 Assessment and Plan (1) Abnormal stress test Current Visit: Yes Status: Acute Troponins negative x 4. Chest pain with typical features. Ambulated pt to bathroom and became diaphoretic and had chest pain. Stress test resulted. Gated EF 61%, small-medium sized, mild-moderate intensity , reversible perfusion defect involving the basal-apical inferior wall. Findings consistent with mild-moderate reversible ischemia of inferior wall. Given stress results and witnessed symptoms when ambulating from bathroom, recommend proceeding with [facility]. R/B/A discussed. Pt agrees to proceed. Echo 09/04/2015: EF 50%. Hypokinesis of the basal to mid inferolateral segments. Mild concentric LVH. LHC 09/04/2015: Left main normal. LAD proximal 20% stenosis. Circumflex proximal 95% stenosis (HUNTER placed). RCA proximal and mid 25% stenosis. Pt unfortunately continues to smoke. ASA, Plavix, Statin, BB, CCB, AC-I. (2) Hyperlipidemia Current Visit: Yes Status: Chronic Switch to Atorvastatin 80mg daily. Triglycerides 476, Cholesterol 239, HDL 36. Qualifiers: Hyperlipidemia type: unspecified Qualified Code(s): E78.5 - Hyperlipidemia , unspecified (3) CAD (coronary artery disease) Current Visit: Yes Status: Chronic ASA, Plavix, Statin, BB, AC-I, CCB. Hx of HUNTER to prox Cx 09/04/15. Denies missing any DAPT. Qualifiers: Coronary Disease-Associated Artery/Lesion type: [place] artery [place] vs. transplanted heart: [place] heart Associated angina: angina presence unspecified Qualified Code(s): I25.10 - Atherosclerotic heart disease of [place] coronary artery without angina pectoris (4) Tobacco use Current Visit: Yes Status: Chronic Reports has decreased to 1/2 PPD. Smoking cessation counseling given. (5) Essential hypertension Current Visit: Yes Status: Chronic BP currently marginal--Systolic 90s-low 100s. Decrease Lisinopril to 2.5mg daily. Continue low dose BB and CCB. Discussion w patient/family: The assessment and plan as outlined above was discussed with the patient and/or family members who expressed understanding and agreement. All questions were answered. Thank you for involving us in the care of your patient. Please call with any questions. History of Present Illness Consult date: 09/03/16 Requesting physician: Doris Cannon Consult reason: Abnormal stress Chief complaint: chest pain History of present illness: Mr. Robert is a 36 year old male with PMH of NSTEMI, CAD s/p PCI essential HTN , HLD, untreated sleep apnea, and tobacco use. He presented to ED with worsening chest pain. He reports that chest pain initially started 1 month ago, but worsened over the past 3 days. He describes it as left sided that radiates to this throat and into his left ribs. Reports associated diaphoresis and dyspnea with episodes. Reports pain is worse on exertion and with sitting straight up. Does report symptoms similar to prior ND. Nitro and IV/PO pain medication helps with pain. Troponins negative. Stress test obtained. Gated EF 61%, small-medium sized, mild-moderate intensity, reversible perfusion defect involving the basal-apical inferior wall. Findings consistent with mild- moderate reversible ischemia of inferior wall. Prior cardiac testing: Echocardiogram 09/04/2015: EF 50%. Hypokinesis of the basal to mid inferolateral segments. Mild concentric LVH. Left heart catheterization 09/04/2015: Left main normal. LAD proximal 20% stenosis. Circumflex proximal 95% stenosis (HUNTER placed). RCA proximal and mid 25 % stenosis. Past Med Surg Social Fam HX - Past Medical History Medical history: arthritis, coronary artery disease, hyperlipidemia, hypertension, kidney stones, liver disease (Fatty Liver, NOS.), myocardial infarction, renal disease, other Psychiatric history: anxiety, depression, other - Past Surgical History Surgical History: angioplasty/stent, other - Social History Smoking Status: Current every day smoker Packs per day: 1+ppd Smokeless Tobacco Status: No Alcohol use: rarely Drug use: none - Family History Father Adopted: [place]: Gray Robert Family Member Ethnicity: Non- Living Status: Age at : 46 Cause of : Failed gastric bypass Hx Family Cardiac Disorders: No Hx Family Respiratory Disorders: No Hx Family Cancer: No Hx Family GI Disorders: No Hx Family Genitourinary Disorders: No Hx Family Endocrine Disorder: No Hx Family Musculoskeletal Disorders: No Hx Family Neuromuscular Disorders: No Hx Family Neurologic Disorders: No Hx Family HEENT Disorders: No Hx Family Autoimmune Disorders: No Hx Family Reproductive Disorders: No Hx Family Psychosocial Disorders: No Hx Family Medical Disorders: No Mother Adopted: [place]: Amy Robert Age: 55 Family Member Ethnicity: Non- Living Status: Still Living Hx Family Cardiac Disorders: Yes (Irregular heartbeat) Hx Family Respiratory Disorders: No Hx Family Cancer: No Hx Family GI Disorders: No Hx Family Genitourinary Disorders: No Hx Family Endocrine Disorder: No Hx Family Musculoskeletal Disorders: Yes (Knee replecement) Hx Family Neuromuscular Disorders: No Hx Family Neurologic Disorders: No Hx Family Autoimmune Disorders: No Hx Family Reproductive Disorders: No Hx Family Psychosocial Disorders: No Hx Family Medical Disorders: No Grandfather Age at : 43 Hx Family Cardiac Disorders: Yes (ND at age 41.) Medications and Allergies Amlodipine [Norvasc] 5 mg PO DAILY 09/04/15 [History] Aspirin 81 mg PO DAILY #30 tab.chew 09/06/15 [Rx] Clopidogrel [Plavix] 75 mg PO DAILY #30 tablet 09/06/15 [Rx] Lisinopril [Zestril] 5 mg PO DAILY #30 tablet 09/06/15 [Rx] Metoprolol [Lopressor] 25 mg PO BID #30 tablet 09/06/15 [Rx] Nitroglycerin 0.4 mg SL Q5MIN PRN #60 tab.subl 09/06/15 [Rx] Atorvastatin [Lipitor] 40 mg PO HS 08/31/16 [History] Diclofenac Sodium 1 appl TP TID PRN 08/31/16 [History] Allergies phenobarbital Adverse Reaction (Verified 06/07/16 01:13) Difficulty Breathing RASH AND SWELLING All Systems Review: A 10-system review of systems was performed and is negative for pertinent findings except as documented above in the HPI. - Cardiovascular Cardiovascular: as per HPI, chest pain at rest, chest pain with exertion, diaphoresis, dyspnea on exertion, radiating jaw, neck or arm pain - Respiratory Respiratory: dyspnea Physical Examination Vital Signs, Last 4 Hours Temp Pulse Resp BP Pulse Ox 09/03/16 10:58 97.7 F 55 16 99/58 96 Vital Signs Temp Pulse Resp BP Pulse Ox 09/03/16 10:58 97.7 F 55 16 99/58 96 09/03/16 06:57 97.8 F 57 16 95/54 96 09/03/16 04:24 97.4 F L 61 13 97/58 94 09/02/16 23:30 98.0 F 67 17 107/65 97 09/02/16 19:27 98.0 F 64 16 111/62 97 09/02/16 14:52 98.0 F 60 16 106/68 97 Intake and Output 09/02/16 09/03/16 09/03/16 23:59 07:59 15:59 Intake Total 120 / 120 360 / 360 Balance 120 / 120 360 / 360 Intake: Oral 120 / 120 360 / 360 Other: Meal Dinner Breakfast Percent of Meal Consumed 100% 100% Weight 114.5 kg Patient Weight 09/03/16 23:59 Weight 114.5 kg General: Conversant, No Apparent Distress HEENT: Atraumatic, Normocephaly, Mucus Membranes Moist Neck: No JVD, Normal carotid pulses Cardiac: Reg Rate and Rhythm, Normal S1 and S2, No Murmur Lungs: Normal Breath Sounds, No Wheeze, Rales, Rhonchi Neuro: Alert and responsive, No focal deficits noted Abdomen: Soft, Non-Tender Skin: No rashes noted on visualized skin Musculoskeletal: No Chest Wall Tenderness Extremities: No Clubbing, No Cyanosis, No Edema, Normal Pulses Results 09/01/16 01:13 09/01/16 01:13 Active Medications Acetaminophen (Tylenol) 650 mg PO Q6HR PRN PRN Reason: Mild Pain (1-3) Stop: 03/02/17 23:43 Amlodipine Besylate (Norvasc) 5 mg PO DAILY [facility] PRN Reason: Protocol Stop: 03/03/17 09:01 Last Admin: 09/03/16 08:40 Dose: 5 mg Aspirin (Aspirin) 81 mg PO DAILY [facility] Stop: 03/03/17 09:01 Last Admin: 09/03/16 08:39 Dose: 81 mg Atorvastatin Calcium (Lipitor) 80 mg PO HS [facility] Stop: 03/04/17 21:01 Last Admin: 09/02/16 20:00 Dose: 80 mg Clopidogrel Bisulfate (Plavix) 75 mg PO DAILY [facility] Stop: 03/03/17 09:01 Last Admin: 09/03/16 08:39 Dose: 75 mg Docusate Sodium (Colace) 100 mg PO BID [facility] Stop: 03/03/17 09:01 Last Admin: 09/03/16 08:40 Dose: 100 mg Heparin Sodium (Porcine) (Heparin) 5,000 unit SQ Q12HCO [facility] Stop: 03/04/17 18:46 Last Admin: 09/03/16 06:42 Dose: Not Given Lisinopril (Zestril) 5 mg PO DAILY [facility] PRN Reason: Protocol Stop: 03/03/17 09:01 Last Admin: 09/03/16 08:40 Dose: 5 mg Metoprolol Tartrate (Lopressor) 25 mg PO BID [facility] Stop: 03/02/17 23:46 Last Admin: 09/03/16 08:40 Dose: 25 mg Metoprolol Tartrate (Lopressor) 5 mg IVP Q6HR PRN PRN Reason: SEE COMMENTS Stop: 03/02/17 23:43 Morphine Sulfate (Morphine Sulfate) 2 mg IVP Q2H PRN PRN Reason: Severe Pain (7-10) Stop: 03/02/17 23:43 Last Admin: 09/03/16 06:23 Dose: 2 mg Naloxone HCl (Narcan) 0.4 mg IVP Q2MIN PRN PRN Reason: Opioid Reversal Stop: 03/02/17 23:43 Naproxen (Naprosyn) 500 mg PO BID [facility] PRN Reason: Protocol Stop: 03/04/17 21:01 Last Admin: 09/03/16 08:39 Dose: 500 mg Nicotine (Nicoderm) 21 mg TD DAILY PRN; Protocol PRN Reason: Nicotine Cravings Stop: 03/02/17 23:46 Nitroglycerin (Nitroglycerin) 0.4 mg SL Q5MIN PRN PRN Reason: Chest Pain Stop: 03/02/17 23:41 Omeprazole (Prilosec) 20 mg PO DAILY@0630 [facility] PRN Reason: Protocol Stop: 03/03/17 06:31 Last Admin: 09/03/16 06:18 Dose: 20 mg Oxycodone HCl (Roxicodone) 10 mg PO Q6HR PRN PRN Reason: Moderate Pain (4-6) Stop: 03/02/17 23:43 Last Admin: 09/03/16 08:50 Dose: 10 mg Promethazine HCl (Phenergan) 12.5 mg IVP Q6HR PRN PRN Reason: Nausea And Vomiting Stop: 03/02/17 23:43 - Imaging and Cardiology Stress Test: report reviewed Echo: report reviewed Cardiac cath: report reviewed - EKG Interpretation EKG results cardiology: personally reviewed, other (24 hour tele AVG HR 61, SR, no significant pauses or arrhythmias) Consult Discharge Plan - Plan Referrals: Smauel Santiago MD [Primary Care Provider] - 09/07/16 9:45 am
--- NOTE | 2016-09-03 13:20 | Pre-Sedation Evaluation ---
Pre-sedation evaluation - Pre-sedation checklist Date of procedure: 09/03/16 Procedure: [facility] Recent Vitals: Last Vital Signs Temp 97.7 F 09/03/16 10:58 Pulse 55 09/03/16 10:58 Resp 16 09/03/16 10:58 BP 99/58 09/03/16 10:58 Pulse Ox 96 09/03/16 10:58 H&P (including ROS) documented in medical record: Yes Previous reaction to sedatives/anesthetics: No Dietary Status: No solid food in preceding 4 hrs and no liquid in preceding 2 hrs Dentition: No loose teeth or bridges, poor dentition ASA Classification *see protocol: CLASS II-Mild systemic disease Plan of Care: Pt appropriate candidate for procedure/moderate/conscious sedation , Risks/benefits of procedure/sedation discussed w/ patient/family
[2016-09-03] MEDS ORDERED: Nitroglycerin 1,000 MCG/10 ML VIAL IV ONE (13:44)
[2016-09-03] MEDS ORDERED: 0.9 % Sodium Chloride 1,000 ML ONE ×2 (13:44→14:10)
[2016-09-03] MEDS ORDERED: Verapamil 5 MG/2 ML VIAL ONE (13:44)
[2016-09-03] MEDS ORDERED: *HR* Heparin 10,000 UNIT/10 ML VIAL ONE (13:44)
[2016-09-03] MEDS ORDERED: Heparin 1,000 UNITS/500 mL NS 500 ML ONE (13:44)
[2016-09-03] MEDS ORDERED: *HR* Midazolam HCl 5 MG/5 ML VIAL IVP ONE (14:06)
[2016-09-03] MEDS ORDERED: *HR* FentaNYL (PF) 250 MCG/5 ML VIAL ONE (14:06)
--- NOTE | 2016-09-03 14:37 | Internal Med Progress Note ---
Date of Encounter: 09/03/16 Time of Encounter: 10:00 - Assessment and plan (1) Chest pain Current Visit: No Status: Acute Assessment and plan: Patient has constant left-sided chest pain, worsening on chest wall palpation. History of CAD. - Stress test positive, cardiology consult called. Plan for LHC. - Three sets of troponin negative - Continue aspirin, Plavix, beta alec, and atorvastatin Qualifiers: Chest pain type: unspecified Qualified Code(s): R07.9 - Chest pain, unspecified (2) Hyperlipidemia Current Visit: Yes Status: Chronic Assessment and plan: Patient was on simvastatin. Lipid panel shows cholesterol level still high, change to atorvastatin 80mg po qhs. Qualifiers: Hyperlipidemia type: unspecified Qualified Code(s): E78.5 - Hyperlipidemia , unspecified (3) DVT prophylaxis Current Visit: No Status: Acute Assessment and plan: Heparin subcutaneously (4) CAD (coronary artery disease) Current Visit: Yes Status: Chronic Assessment and plan: S/P stent. Continue aspirin, Plavix, beta alec, and statin. Stress test positive, plan for LHC. Qualifiers: Coronary Disease-Associated Artery/Lesion type: [place] artery [place] vs. transplanted heart: [place] heart Associated angina: angina presence unspecified Qualified Code(s): I25.10 - Atherosclerotic heart disease of [place] coronary artery without angina pectoris - Time Spent With Patient 25 - 35 minutes - Subjective Interval history: Patient is a 36-year-old male admitted for chest pain. Past medical history is significant for hypertension, hyperlipidemia, CAD S/P stenting. I saw and examined the patient. Patient still has moderate chest pain. Stress test result shows inferior wall ischemia. Cardiology consult was called. Plan for LHC today. Continue aspirin, Plavix, metoprolol, and atorvastatin. - Constitutional Vitals: Temp Pulse Resp BP Pulse Ox 97.7 F 55 16 99/58 96 09/03/16 10:58 09/03/16 10:58 09/03/16 10:58 09/03/16 10:58 09/03/16 10:58 General appearance: Present: cooperative, A&O X 3, no acute distress, obese, answers questions appropriately - Head Head exam: Present: atraumatic, normocephalic - Eye Eye exam: Present: PERRL, conjuntiva pink, sclera anicteric Pupils: Present: PERRL - Neck Neck exam general surgery: Present: supple, trachea midline. Absent: lymphadenopathy - Respiratory Respiratory exam: Present: chest wall tenderness, CTAB. Absent: accessory muscle use, rales, rhonchi, wheezes - Cardiovascular Cardiovascular exam: Present: RRR, +S1, +S2. Absent: diastolic murmur, gallop, rubs, systolic murmur - GI/Abdominal GI/Abdominal exam: Present: normal bowel sounds, soft, no peritoneal signs. Absent: distended, tenderness - Extremities Exam Extremities exam: Present: warm, radial pulses palpable and symetrical. Absent : calf tenderness, cyanotic, pedal edema - Neurological Exam Neurological exam: Present: CN II-XII intact, oriented X3, no focal deficits. Absent: pronater drift, facial droop, speech deficit - Skin Skin exam: Present: dry, intact Internal Medicine: Result - Labs CBC & Chem 7: 09/01/16 01:13 09/01/16 01:13 - ABG Interpretation ABG results: PT/INR, D-dimer PT 10.8 Seconds (9.4-12.1) 09/01/16 01:13 D-Dimer < 215 ng/mLFEU (0-500) 08/31/16 19:39 Consult Discharge Plan - Plan Referrals: Samuel Santiago MD [Primary Care Provider] - 09/07/16 9:45 am
[2016-09-03] MEDS ORDERED: amLODIPine 5 MG TABLET PO SCH (14:45)
--- NOTE | 2016-09-03 14:50 | Event Note ---
Date of Encounter: 09/03/16 Time of Encounter: 15:00 - Cardiology Event Note Patent stents. Moderate disease. EF normal. DC ACEI, increase norvasc, and intensify statin therapy. Cardiac rehab.
--- NOTE | 2016-09-03 14:53 | Invasive Diagnostic Lab Proc ---
Name: Mathew Robert Date of Study: 09/03/2016 Date: 1980 Ht: 66.9in Medical Record#: [id number] Age: 36 Wt: 252.43lb Gender: Male BSA: 2.23 Order #: [id number] BMI: 39.62 Physicians Procedure Physician: Conner Reyes MD, [facility] Referring MD: Samuel Santiago MD Referring MD: Staff Name Position Time In Sravani Muhammad RT (R) Scrub 02:12 PM Tyra Smith RN Monitor 02:12 PM Jewel Chapin RN Instructional Leader 02:12 PM Indications Indication Abnormal Test - Stress Procedures Performed Procedure L HRT ARTERY/VENTRICLE ANGIO Pre-Procedure Checklist Informed consent is complete signed and on chart. H\\T\\P is on chart. ID band is on and ID verified with patient. Patient NPO for procedure The procedure was described for the patient and questions were answered. Blood Pressure: 99/58 ECG is on chart. Rhythm: NSR Plan of Care Patient will tolerate the procedure without complications. Adequate level of comfort will be maintained. Hemodynamics will remain stable Patient will recover from procedure without complications. Respiratory function will be maintained. Cardiac rhythm will remain stable. Patient temperature will be maintained. Patient and/or family have verbalized understanding of the procedure. Patient Education Chief Complaint/Reason for Test: Cardiac Cath Developmental Category: Adult (18-64 years) Developmentally Appropriate for Age: Yes Learning Barriers: Sedated Education Needs: Procedure Education Method: Verbal Information Taught: Cardiac Cath Educational Evaluation: Able to repeat information Intravenous Access Time IV Size Location DC'd Fluid/Drip Rate Units RN 18g 1 05/25" Patent On Arrival Lt Antecubital 0.9NaCl 25 ml/hr Jewel Chapin RN Allergies MOTRIN Narcotics of any kind phenobarbital Vital Signs Time BP (mmHg) HR (bpm) O2 Sat. RR (bpm) LOC 01:35 PM 99 / 58 55 96 % 16 02:11 PM / % 5 = Fully awake and oriented or at pre-proc level 02:11 PM / % 4 = Oriented but drowsy 02:07 PM 135 / 86 55 97 % 02:12 PM 132 / 81 61 98 % 16 02:17 PM 120 / 72 54 96 % 16 02:22 PM 127 / 70 48 98 % 22 02:27 PM 128 / 74 59 98 % 16 02:32 PM 121 / 62 62 96 % 16 02:37 PM 122 / 73 62 96 % 32 Procedural Medications Time Medication Dose Units Method Given By 02:11 PM Oxygen 2 L/min nasal cannula Jewel Chapin RN 02:12 PM Versed 2 mg Intravenous Jewel Chapin RN 02:12 PM Fentanyl 50 mcg Intravenous Jewel Chapin RN 02:25 PM Lidocaine 2% 0.5 ml Subcutaneous Conner Reyes MD, FAC 02:27 PM Heparin 4000 units Nitroglycerin 200 mcg Verapamil 2.5 mg Intraarterial Conner Reyes MD, [facility] ASA Classification: CLASS II- Mild systemic disease (i.e. well-controlled diabetes, hypertension, asthma, cigarette smoking) Rahul Score Preprocedure Postprocedure Activity 2- Moves 4 extremities sustained head lift Activity 2- Moves 4 extremities sustained head lift Circulation 2- SBP +/= 20 points of pre-anesthetic level Circulation 2- SBP +/= 20 points of pre-anesthetic level Consciousness 2- Awake and alert oriented x 3 Consciousness 2- Awake and alert oriented x 3 O2 Saturation 2- Able to maintain O2 satruation of 92% on room air O2 Saturation 2- Able to maintain O2 satruation of 92% on room air Respiratory 2- Able to deep breathe and cough well Respiratory 2- Able to deep breathe and cough well Total Score 10 Total Score 10 Contrast Agent: Isovue Diagnostic Contrast: 58 ml Total Contrast: 58 ml Fluoro Dose: 240 mGy Procedure Log Time Note Enter By 01:48 PM CathStat 02:00 PM 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 well-controlled diabetes, hypertension, asthma, cigarette smoking) 02:00 PM Meet and greet completed 02:01 PM Sign in performed according to hospital policy. 02:01 PM Procedure start 14:01 dspell 02:06 PM Vitals capture started with the following parameters, Patient=Adult, Interval=5 min, Initial Lenulhcb=783 mmHg, Deflation Rate=5 mmHg, Cuff placed on Left Arm 02:07 PM HR=55 bpm, MISY=964/86 mmhg, SpO2=97.0 %, Comment=sb 02:11 PM Time: 14:11 Oxygen on at 2 L/min per nasal cannula by Jewel Chapin RN bubba 02:11 PM Time: 14:11 Patient comfortable and pain free: Yes :11 PM Time: 14:11LOC: 5 = Fully awake and oriented or at pre-proc level dsp:12 PM Time: 14:12 Versed 2 mg Intravenous Given by Jewel Chapin RN 02:12 PM Time: 14:12 Fentanyl 50 mcg Intravenous Given by Jewel Chapin RN 02:12 PM HR=61 bpm, NNJO=763/81 mmhg, SpO2=98.0 %, Resp=16 B/min, Comment=sb 02:12 PM Sravani Muhammad RT (R) Position: Scrub Time in: :12 02:12 PM Tyra Smith RN Position: Monitor Time in: :12 02:12 PM Jewel Chapin RN Position: Instructional Leader Time in: 14:12 02:12 PM Patient charges- Angio tray pack, Navilyst 3mm J, Pulse Oximetry and ACIST tubing and transducer 02:12 PM Case Delayed No, inpatient 02:13 PM Hair removed from procedure site in procedure lab using clippers. Rt wrist and rt groin prepped with Chloraprep by Sravani Muhammad RT (R), safety strap applied then patient was draped. Skin intact. 02:17 PM HR=54 bpm, ULQC=072/72 mmhg, SpO2=96.0 %, Resp=16 B/min, Comment=sb 02:20 PM Pressure channel 1 zero failed. 02:20 PM Pressure channel 1 zeroed. 02:22 PM HR=48 bpm, NNEK=088/70 mmhg, SpO2=98.0 %, Resp=22 B/min, Comment=sb 02:25 PM Clinical Presentation: Unstable angina dsp 02:25 PM Time out performed according to hospital policy : PM Time: 14:25 0.5 ml Lidocaine 2% to right radial Subcutaneous Given by Conner Reyes MD, [facility] dspell 02:26 PM Time: 14:11 Patient comfortable and pain free: Yes : PM Time: 14:11LOC: 4 = Oriented but drowsy dsp: PM Access obtained by percutaneous puncture. 6Fr 11cm Terumo Glidesheath sheath placed in right Radial artery. [id number] dspellman 02:27 PM Time: 14:27 Patient given 4,000 units Heparin, 200 mcg Nitroglycerin, and 2.5 mg Verapamil Intraarterial by Conner Reyes MD, [facility] dspellman 02:27 PM HR=59 bpm, ROOR=253/74 mmhg, SpO2=98.0 %, Resp=16 B/min, Comment=sb 02:27 PM 5Fr FR 4 catheter inserted over the wire [facility] dspellman 02:29 PM Recorded Pressure: Ao, HR=61, Condition=Condition 1 (Aorta) Ao 97/74/86 02:29 PM RCA angiography performed in multiple views. dspellman 02:29 PM Catheter removed dspellman 02:30 PM Coronary Dominance: right dspellman 02:30 PM 5Fr FL3.5 catheter inserted over the wire [id number] dspellman 02:30 PM Lesion found in Proximal RCA. Pre Stenosis: 30 Pre JANIE Flow: dspellman 02:30 PM Lesion found in Mid RCA. Pre Stenosis: 40 Pre JANIE Flow: dspellman 02:30 PM LCA angiography performed in multiple views. dspellman 02:31 PM Recorded Pressure: Ao, HR=67, Condition=Condition 1 (Aorta) Ao 97/75/86 02:32 PM Lesion found in Mid LAD. Pre Stenosis: 20 Pre JANIE Flow: dspellman 02:32 PM Lesion found in Right PDA. Pre Stenosis: 20 Pre JANIE Flow: dspellman 02:32 PM HR=62 bpm, QSYT=411/62 mmhg, SpO2=96.0 %, Resp=16 B/min, Comment=sb 02:34 PM Lesion found in Distal Circumflex. Pre Stenosis: 60 Pre JANIE Flow: dspellman 02:34 PM Lesion found in 1st Marginal. Pre Stenosis: 60 Pre JANIE Flow: dspellman 02:35 PM Catheter removed dspellman 02:35 PM Catheter selectively placed in left ventricle dspellman 02:35 PM Bolus angiogram of left Ventricle complete: 10 ml/sec for a total of 25 mls dspellman 02:35 PM Recorded Pressure: LV, HR=59, Condition=Condition 1 (Left Ventricle) LV 118/13/29 02:36 PM Recorded Pressure: LV, Ao, HR=58, Condition=Condition 1 (Left Ventricle) LV 114/13/25, (Aorta) Ao 104/68/85 02:37 PM HR=62 bpm, DZLJ=097/73 mmhg, SpO2=96.0 %, Resp=32 B/min, Comment=sb 02:39 PM Catheter removed dspell 02:40 PM Procedure completed at 14:40 dspell 02:40 PM Sign out completed: Radiation Dose 240 mGy Fluoro Time: 2.2 Isovue 370 - 200ml contrast 58 ml given by Conner Reyes MD, [facility]. Complications: NoneCardiac Rehab Consult needed: YesConfirmed administered medications: Yes 02:40 PM Arterial sheath pulled, Vasc Band closure device used and was Successful S/N. dsp 02:40 PM 9 ml air in Vasc Band. dspell 02:41 PM Post ECG Sinus Bradycardia dspell 02:41 PM Post Blood Pressure 122/73 dspell 02:41 PM 14:41 Post Pulses Rt Radial 1+ dspell 02:42 PM Information taught Cardiac Cath and Vasc Band dspell 02:42 PM Education needs Procedure, Plan of Care, and Responsibilities of Patient in Care dspell 02:42 PM Learning barriers :None dspell 02:42 PM Education evaluation Able to repeat information dspell 02:42 PM Site status No bleeding/hematoma - Rt Wrist as reported by Sravani Muhammad RT (R) at 14:42 dspell 02:42 PM Plavix, Effient or Brilinta given No dspell 02:42 PM Delay to floor No dspell 02:43 PM no family here at this time, Patient doesnt want to call anyone dspell 02:44 PM Complications: None dspell 02:44 PM Report given to Analy HALL Pt taken to 3B Room #45. 14:44 dspell 02:46 PM Site status No bleeding/hematoma - Rt Wrist as reported by Sravani Muhammad RT (R) at 14:46 dspell Complications Complication None None Hemodynamics Pressures Site Systolic/A Wave Diastolic/V Wave Mean AO 97 74 86 AO 97 75 86 LV 118 13 29 LV 114 13 25 AO 104 68 85 Post Procedure Information Blood Pressure: 122/73 mmHg Rhythm: Sinus Bradycardia Post procedural instructions were given Closure Device Time Device Success/Fail 09/03/2016 2:46:00 PM Mechanical Compression Successful Site Checks Time Location Status Staff Sheath In? Note 02:42 PM Rt Wrist No bleeding/hematoma Sravani Muhammad RT (R) 02:46 PM Rt Wrist No bleeding/hematoma Sravani Muhammad RT (R) Pulses Time Site Pre-Procedure Post-Procedure Note 09/03/2016 1:35:00 PM Bilateral DP \\T\\ PT 2+ 2:41:00 PM Rt Radial 1+ 09/03/2016 1:35:00 PM Rt Radial 2+ Updated by RT Los (R) on 09/03/2016 2:48:59 PM RT Los electronically signed on 09/03/2016 2:50:14 PM with status of Final
--- NOTE | 2016-09-03 14:56 | Invasive Diagnostic Lab ---
Name: Mathew Robert Date of Study: 09/03/2016 Date: 1980 Ht: 170.0 cm /66.9 in Medical Record#: [id number] Age: 36 Wt: 114.5 kg / 252.43 lb Account/Order#: [id number] Gender: Male BSA: 2.23 Order #: [id number] Fluoro Dose: 240 mGy BMI: 39.62 Procedure Physician: Conner Reyes MD, FACC Referring MD: Samuel Santiago MD Referring MD: Procedures Performed: LEFT HEART CATH Indications: Abnormal Test - Stress Impressions: There is mild to moderate three vessel coronary artery disease. The left ventricle is normal and has normal contractility EF 60% Recommendations: Optimal medical therapy of patient's disease. Aggressive risk factor modification. Patient being referred for cardiac rehab. History/Risk Factors: Pericarditis Chest pain HPTN Hyperlipidemia CAD w/PTCA NSTEMI Tobacco abuse Sepsis Anxiety Depression Sleep apnea Procedure Access obtained in the right Radial artery by percutaneous puncture Complications: None, None Contrast: Isovue 58ml Closure Device: Mechanical Compression Hemodynamics: Pressures Site Systolic/ A Wave Diastolic/ V Wave End Diastolic/ Mean HR AO 97 74 86 61 AO 97 75 86 67 LV 118 13 29 59 LV 114 13 25 57 AO 104 68 85 60 LV Ventriculography Ejection Method: LV Gram Ejection Fraction: 60% Wall Motion: SCOTT Anterobasal Normal Anterolateral Normal Apical: Normal Inferoapical Normal Inferobasal Normal Coronary Dominance: right Lesion Findings/Interventions * Left Main Coronary Artery The LMCA is angiographically free of disease. * Left Anterior Descending There is a 20% stenosis in the Mid LAD. * Circumflex Patent proximal stent There is a 50% stenosis in the mid Circumflex. There is a 60% stenosis in the 1st Marginal. * Right Coronary Artery There is a 30% stenosis in the Proximal RCA. There is a 40% stenosis in the Mid RCA. There is a 20% stenosis in the Right PDA. Updated by RT Los (R) on 09/03/2016 2:48:31 PM Conner Reyes MD, FACC electronically signed on 09/03/2016 2:53:47 PM with status of Final
[2016-09-04 02:55] LABS: Basophils % 0.5 %; Eosinophils # 0.3 K/mcL (0.0-0.6); Eosinophils % 3.4 %; Hematocrit 38.9 % (37.5-50.1); Hemoglobin 13.1 g/dL (12.9-16.9); Immature Granulocytes % 0.4 % (0-4); Lymphocytes # 2.8 K/mcL (0.6-4.6); Lymphocytes % 33.3 %; Mean Corpuscular HGB Conc 33.7 g/dL (31.6-35.5); Mean Corpuscular Hemoglobin 31.2 pg (28.0-33.3); Mean Corpuscular Volume 92.6 fL (83.0-100.0); Mean Platelet Volume 10.4 fL (9.4-12.4); Monocytes # 0.7 K/mcL (0.0-1.3); Monocytes % 7.9 %; Neutrophils # 4.6 K/mcL (1.6-8.9); Platelet Count 209 K/mcL (140-400); Red Cell Distribution Width 13.1 % (11.5-14.5); Segmented Neutrophils % 54.5 %
[2016-09-04 03:07] LABS: BUN/Creatinine Ratio 19 (6-26); Blood Urea Nitrogen 18 mg/dL (8-26); Carbon Dioxide 28 mEq/L (19-29); Chloride 106 mEq/L (98-109); Glucose 119 mg/dL (70-99); Osmolality,Calculated 295 (280-300); Potassium 3.7 mEq/L (3.5-4.5); Sodium 141 mEq/L (136-145); eGFR For African Americans > 60 (> 60); eGFR For Non-African Americans > 60 (> 60)
[2016-09-04] MEDS: *HR* Heparin 5,000 UNIT/ML VIAL SQ SCH (05:35)
[2016-09-04 07:28] VITALS: BP 124/70
[2016-09-04] MEDS: Aspirin 81 MG TAB.CHEW PO SCH (07:40)
[2016-09-04] MEDS: *HR* OxyCODONE Immed Rel 5 MG TABLET PO PRN (07:40)
--- NOTE | 2016-09-04 07:58 | Event Note ---
Date of Encounter: 09/04/16 Time of Encounter: 07:30 - Cardiology Event Note Seen and examined. No events reported overnight. Vital signs and telemetry stable. [facility] 09/04/16: patent stents, stable CAD. Medical mgmt recommended. Care of right radial cath site discussed with patient including restrictions and care of site. Risk factor modification emphasized. Follow-up with Dr. Hinojosa in 3-4 weeks, appointment will be coordinated. No further recommendations from Cardiology standpoint, will sign-off.
--- NOTE | 2016-09-04 10:40 | Discharge Summary ---
Date of Encounter: 09/04/16 Time of Encounter: 10:00 - Discharge Diagnosis (1) Chest pain Priority: Primary Status: Acute Qualifiers: Chest pain type: unspecified Qualified Code(s): R07.9 - Chest pain, unspecified (2) Hyperlipidemia Priority: Primary Status: Chronic Qualifiers: Hyperlipidemia type: unspecified Qualified Code(s): E78.5 - Hyperlipidemia , unspecified (3) DVT prophylaxis Priority: Secondary Status: Acute (4) CAD (coronary artery disease) Priority: Primary Status: Chronic Qualifiers: Coronary Disease-Associated Artery/Lesion type: [place] artery [place] vs. transplanted heart: [place] heart Associated angina: angina presence unspecified Qualified Code(s): I25.10 - Atherosclerotic heart disease of [place] coronary artery without angina pectoris - Discharge Medications Prescriptions: Acetaminophen [Tylenol] 650 mg PO Q6HR PRN #30 tablet PRN Reason: Mild Pain (1-3) OxyCODONE Immed Rel [Roxicodone 5 MG] 10 mg PO Q6HR PRN #40 tablet PRN Reason: Moderate Pain (4-6) Nicotine Patch [Nicoderm] 21 mg TD DAILY PRN #14 patch.td24 PRN Reason: Nicotine Cravings Home Medications: Amlodipine [Norvasc] 5 mg PO DAILY 09/04/15 [History] Aspirin 81 mg PO DAILY #30 tab.chew 09/06/15 [Rx] Clopidogrel [Plavix] 75 mg PO DAILY #30 tablet 09/06/15 [Rx] Lisinopril [Zestril] 5 mg PO DAILY #30 tablet 09/06/15 [Rx] Metoprolol [Lopressor] 25 mg PO BID #30 tablet 09/06/15 [Rx] Nitroglycerin 0.4 mg SL Q5MIN PRN #60 tab.subl 09/06/15 [Rx] Diclofenac Sodium 1 appl TP TID PRN 08/31/16 [History] Acetaminophen [Tylenol] 650 mg PO Q6HR PRN #30 tablet 09/04/16 [Rx] Atorvastatin Calcium 80 mg PO DAILY #30 tablet 09/04/16 [Rx] Nicotine Patch [Nicoderm] 21 mg TD DAILY PRN #14 patch.td24 09/04/16 [Rx] OxyCODONE Immed Rel [Roxicodone 5 MG] 10 mg PO Q6HR PRN #40 tablet 09/04/16 [Rx] Allergies/Adverse Reactions: Allergies phenobarbital Adverse Reaction (Verified 06/07/16 01:13) Difficulty Breathing RASH AND SWELLING Procedures/tests Complete & Pending: Procedures Performed prior 72 hours Category Date Time Status CL Cardiac Catheterization [CL] Routine Afternoon Nanny 09/03/16 12:55 Completed NM kobe perf SPECT multi [NM] Routine Exams 09/02/16 09:00 Taken EV echocardiogram Routine Y 09/01/16 15:42 Completed SP pharm nuclear stress Routine Y 09/02/16 07:30 Completed Date of admission: 08/31/16 20:59 Primary care physician: Samuel Santiago MD Consults: 08/31/16 23:43 Consult to Nurse Navigator [CONS] Routine Comment: 09/03/16 11:41 Consult to Cardiology [CONS] Routine Comment: Consulting Provider: Cardiology Guillermina Reason for Consult: Possitive stress test, chest pain. Call Completed: Yes 09/03/16 14:51 Consult to Cardiac Rehabilitation-Phase1 [CONS] Routine Comment: Reason for Consult: cad Call Completed: Yes Discharging clinician: Doris Cannon Anticipated date of discharge: 09/04/16 - Patient Status Disposition: Home, Self-Care Condition: Good Functional capacity at discharge: independent ambulation Overall status at discharge: patient is progressing back to baseline - Discharge Instructions Instructions: Angina (DC), Heart Healthy Diet (DC) Follow Up With: Samuel Santiago MD [Primary Care Provider] - 09/07/16 9:45 am - Diet and Activity Activity: increase activity as tolerated Diet: low fat, low cholesterol, low salt diet Interval History: Patient has a history of coronary artery disease requiring stents with the most recent one year ago. He is on aspirin and Plavix and followed by Dr. Hinojosa. He states that the last 3 days he has been having intermittent left-sided chest pain. However, today it has increased in intensity and has become more constant. Describes it as a very sharp stabbing pressure in his left chest that radiates into his neck, shoulder, and throat. Nothing seems to make it better or worse. It is nonexertional. However, it is his previous anginal equivalent. Associated with intermittent diaphoresis and nausea. Denies any recent illnesses. Denies fever, chills, abdominal pain, vomiting, diarrhea, pain or swelling in his legs. No history DVT, PE, or malignancy. He does report that he has been taking his aspirin and Plavix daily as instructed, but has not followed up with Dr. Hinojosa and almost a year. Has a history of hypertension and continues to smoke, but has lost almost 50 pounds and has significantly cut back on his smoking. He reports that he took a nitroglycerin last night which resolved his pain, but it is back now and has not responded to nitroglycerin. Hospital course: Mr. Robert is a 36 year old male admitted as chest pain. He has a history of CAD S/P stent. Patient was placed on cardiac monitoring. Chest x-ray negative. EKG unremarkable. Three sets of troponin negative. D-dimer negative. Patient has stress test done, result positive. Cardiology consult was called, and the patient had LHC, no stenting placed. Patient will continue medical management and risk factor reduction. He will have a cardiac rehabilitation. I saw and examined the patient. He is awake alert, oriented 3. Still complaining of mild left-sided chest wall pain, worsen on palpation. Vital signs stable. Will discharge patient home with pain medication. Increase atorvastatin dose because of hypercholesterolemia. Patient will follow-up with cardiology and PCP as outpatient. Time spent discussing smoking cessation with patient: more than 10 minutes - Time Spent with Patient Total time spent providing and/or coordinating discharge services: Greater than 30 minutes - Constitutional Vitals: Temp Pulse Resp BP Pulse Ox 97.7 F 65 16 124/70 97 09/04/16 07:25 09/04/16 07:25 09/04/16 07:25 09/04/16 07:25 09/04/16 07:25 General appearance: Present: cooperative, A&O X 3, no acute distress, obese, answers questions appropriately - Head Head exam: Present: atraumatic, normocephalic - Eye Eye exam: Present: PERRL, conjuntiva pink, sclera anicteric Pupils: Present: PERRL - Neck Neck exam general surgery: Present: supple, trachea midline. Absent: lymphadenopathy - Respiratory Respiratory exam: Present: chest wall tenderness, CTAB. Absent: accessory muscle use, rales, rhonchi, wheezes - Cardiovascular Cardiovascular exam: Present: RRR, +S1, +S2. Absent: diastolic murmur, gallop, rubs, systolic murmur - GI/Abdominal GI/Abdominal exam: Present: normal bowel sounds, soft, no peritoneal signs. Absent: distended, tenderness - Extremities Exam Extremities exam: Present: warm, radial pulses palpable and symetrical. Absent : calf tenderness, cyanotic, pedal edema - Neurological Exam Neurological exam: Present: CN II-XII intact, oriented X3, no focal deficits. Absent: pronater drift, facial droop, speech deficit - Skin Skin exam: Present: dry, intact
== END 2016-09-04 11:46 | disposition home or self-care (01) ==
LOC: 3BNU 18:18 → EMEROO 18:18 → SUATTDRO 20:59 → 3BNU 22:05
PROVIDERS: ADMIT Internal Medicine; ATTEND Internal Medicine